=== PATIENT | male | born 1950 ===

== ENCOUNTER 2017-02-13 17:52 | Emergency (ER) | payer MEDICAID ==
[2017-02-13 17:53] VITALS: BMI 24.3
[2017-02-13 18:04] VITALS: BP 110/77; PULSE 86; RESP 16; TEMP 98.2; O2SAT 99
[2017-02-13] MEDS ORDERED: Oxycodone/Acetaminophen 5/325 mg Tab PO STA (18:19)
--- NOTE | 2017-02-13 18:21 | ED PDOC ---
Lower Extremity Pain/Injury Time Seen by Provider: 02/13/17 18:08 Chief Complaint (Nursing): Lower Extremity Problem/Injury Chief Complaint (Provider): Right foot pain History Per: Patient History/Exam Limitations: no limitations Onset/Duration Of Symptoms: Days (x2) Current Symptoms Are (Timing): Still Present Additional Complaint(s): Brigido Dempsey is a 66 year old male with previous medical history of left lower extremity amputation and hyperlipidemia, who presents to the emergency department with a complaint of right foot pain associated with redness ongoing for 2 days. Denies any fever, chills or trauma. Reported taking Motrin at 2pm today with no alleviation of symptoms. PMD: Laci Price MD Past Medical History Reviewed: Historical Data, Nursing Documentation, Vital Signs Vital Signs: Last Vital Signs Temp 98.2 F 02/13/17 18:02 Pulse 86 02/13/17 18:02 Resp 16 02/13/17 18:02 BP 110/77 02/13/17 18:02 Pulse Ox 99 02/13/17 18:02 - Medical History PMH: CVA, HTN, Hypercholesterolemia, Hyperlipidemia Denies: Chronic Kidney Disease - Surgical History Other surgeries: left lower extremity amputation - Family History Family History: States: Unknown Family Hx, Hypertension - Social History Current smoker - smoking cessation education provided: Yes Alcohol: None Drugs: Denies - Immunization History Hx Tetanus Toxoid Vaccination: No Hx Influenza Vaccination: No Hx Pneumococcal Vaccination: No - Home Medications Home Medications: Ambulatory Orders Medication Instructions Recorded Aspirin [Aspirin Chewable] 81 mg PO DAILY #0 chew 03/02/16 Cyanocobalamin/Folic Acid [Vitamin 1 each PO DAILY #0 tablet 03/02/16 K73-[id number] Acid Tablet] Naproxen [Naprosyn] 500 mg PO Q12 #14 tab 02/13/17 - Allergies Allergies/Adverse Reactions: Allergies Allergy/AdvReac Type Severity Reaction Status Date / Time pantoprazole sodium Allergy ITCHING Verified 02/13/17 18:01 [From Protonix] Review of Systems ROS Statement: Except As Marked, All Systems Reviewed And Found Negative Constitutional: Negative for: Fever, Chills, Other (trauma) Musculoskeletal: Positive for: Foot Pain (right foot associated with redness) Physical Exam - Reviewed Nursing Documentation Reviewed: Yes Vital Signs Reviewed: Yes - Physical Exam Appears: Positive for: Well, Non-toxic, No Acute Distress Head Exam: Positive for: ATRAUMATIC, NORMAL INSPECTION, NORMOCEPHALIC Cardiovascular/Chest: Positive for: Regular Rate, Rhythm Respiratory: Positive for: CNT, Normal Breath Sounds Extremity: Positive for: Normal ROM (with left lower extremity amputation noted) , Pedal Edema (to right foot with mild erythema on heel). Negative for: Other ( lesions or cubitus) DTR - Ankle (R): 2+ Neurologic/Psych: Positive for: Alert, mold filler and drainer II-XII, Oriented - Laboratory Results Result Diagrams: 02/13/17 18:40 02/13/17 18:40 - ECG O2 Sat by Pulse Oximetry: 99 (RA) Pulse Ox Interpretation: Normal Medical Decision Making Medical Decision Making: Initial Impression: Right foot pain Initial Plan: * Xray foot (right) * Xray ankle (right) * Labs * PTT * Patient * Percocet 5/325mg PO * Podiatry consult * Re-evaluation Scribe Attestation: Documented by Pat Brizuela, acting as a scribe for Cat Bryant MD. Provider Scribe Attestation: All medical record entries made by the Scribe were at my direction and personally dictated by me. I have reviewed the chart and agree that the record accurately reflects my personal performance of the history, physical exam, medical decision making, and the department course for this patient. I have also personally directed, reviewed, and agree with the discharge instructions and disposition. Disposition - Clinical Impression Clinical Impression: Plantar fasciitis, Achilles tendonitis - Patient ED Disposition Is Patient to be Admitted: Transfer of Care - Disposition Referrals: Podiatry Clinic [Outside] Farzad Linares DPM [Staff Provider] - Disposition: Transfer of Care Disposition Time: 19:00 Condition: STABLE Prescriptions: Naproxen [Naprosyn] 500 mg PO Q12 #14 tab Instructions: Plantar Fasciitis (ED), Achilles Tendinitis (ED) Patient Signed Over To: Lonnie Bob
[2017-02-13] MEDS ORDERED: Oxycodone/Acetaminophen 5/325 mg Tab ONE (18:46)
--- NOTE | 2017-02-13 18:50 | CP.PCM.CON ---
History of Present Illness - History of Present Illness History of Present Illness: This is a 66 yo male patient w/ pmhx of HLD and left lower extremity amputation 2/2 [place], presents to ED today with complaint of right foot pain x 2 days in duration. Rates the pain as a 10/10 in intensity. Denies any recent trauma or injury to the foot. Denies calf pain. Reports taking Motrin earlier this afternoon with no relief of symptoms. Denies f/n/v/c/sob/cp at this time. ALL: protonix Soc Hx: lives in [place], heavy smoker (7-10 cigarettes/day x many years), denies etoh, denies illicit drugs Review of Systems - Review of Systems Review of Systems: as per HPI Past Patient History - Infectious Disease Hx of Infectious Diseases: None - Past Medical History & Family History Past Medical History?: Yes - Past Social History Alcohol: None Drugs: Denies - CARDIAC Hx Hypercholesterolemia: Yes Hx Hypertension: Yes - PULMONARY Hx Respiratory Disorders: No - NEUROLOGICAL Hx Neurological Disorder: Yes - HEENT Other/Comment: wear eyeglasses at all times - RENAL Hx Chronic Kidney Disease: No - ENDOCRINE/METABOLIC Hx Endocrine Disorders: No - HEMATOLOGICAL/ONCOLOGICAL Hx Blood Disorders: No - INTEGUMENTARY Hx Dermatological Problems: No - MUSCULOSKELETAL/RHEUMATOLOGICAL Hx Musculoskeletal Disorders: Yes (left AKA) - GASTROINTESTINAL Hx Gastrointestinal Disorders: No - GENITOURINARY/GYNECOLOGICAL Hx Genitourinary Disorders: No - PSYCHIATRIC Hx Psychophysiologic Disorder: No Hx Substance Use: No - SURGICAL HISTORY Hx Surgeries: Yes Other/Comment: Left AKA 1973, Rt. inguinal hernia repair - ANESTHESIA Hx Anesthesia: Yes Hx Anesthesia Reactions: No Hx Malignant Hyperthermia: No Meds Allergies/Adverse Reactions: Allergies Allergy/AdvReac Type Severity Reaction Status Date / Time pantoprazole sodium Allergy ITCHING Verified 02/13/17 18:01 [From Protonix] Physical Exam - Constitutional Appears: Non-toxic, No Acute Distress - Extremities Exam Extremities exam: Negative for: calf tenderness Additional comments: Right lower ext exam: VASC- DP pulse is strongly palpable, PT pulse faintly palpable, TG runs warm to cool, cap refill < 3 sec to all digits, moderate non-pitting edema noted to plantar heel, varicosities present to bilateral malleoli DERM- no open lesions, no erythema, no ascending cellulitis NEURO- pedal sensation is grossly intact ORTHO- tenderness noted to plantar medial heel, tenderness also on palpation of achilles tendon insertion, no irregularities on palpation of achilles tendon course, pt unable to wiggle toes and unable to assess AJ ROM at this time due to pain - Neurological Exam Neurological exam: Alert, CN II-XII Intact, Oriented x3 - Psychiatric Exam Psychiatric exam: Normal Affect, Normal Mood Results - Vital Signs Recent Vital Signs: Last Vital Signs Temp 98.2 F 02/13/17 18:02 Pulse 86 02/13/17 18:02 Resp 16 02/13/17 18:02 BP 110/77 02/13/17 18:02 Pulse Ox 99 02/13/17 18:37 - Labs Result Diagrams: 02/13/17 18:40 02/13/17 18:40 Assessment & Plan - Assessment and Plan (Free Text) Assessment: 66 yo male patient with right foot pain Plan: Pt S&E at bedside in ED Plan discussed with attending Dr. Linares in detail Chart labs and vitals reviewed: afebrile, WBC 4.3 STAT dose Percocet po given per ED Right foot/ankle x-ray reviewed: plantar calcaneal heel spur noted with soft tissue edema, no fx's or dislocations noted RICE therapy recommended Recommend po pain meds Stable per podiatry F/u as outpatient in podiatry clinic with Dr. Linares
[2017-02-13 19:13] LABS: EOS # 0.2 K/uL (0.0-0.7); HEMOGLOBIN 13.3 g/dL (12.0-18.0); LYMPH # 1.6 K/uL (1.0-4.3); LYMPH % 38.1 % (20.0-40.0); MEAN CELL VOLUME 89.6 fl (80.0-94.0); MEAN CORPUSCULAR HEMOGLOBIN 29.8 pg (27.0-31.0); MEAN CORPUSCULAR HGB CONC 33.2 g/dL (33.0-37.0); MEAN PLATELET VOLUME 9.1 fl (7.2-11.7); MONO # 0.4 K/uL (0.0-0.8); NEUT # 2.1 K/uL (1.8-7.0); NEUT % 47.9 % (50.0-75.0); NRBC % 0.3 % (0.0-0.0); RBC 4.48 Mil/uL (4.40-5.90); RED CELL DISTRIBUTION WIDTH 12.8 % (11.5-14.5); WHITE BLOOD COUNT 4.3 K/uL (4.8-10.8)
[2017-02-13 19:22] LABS: ALB/GLOB RATIO 1.2 (1.0-2.1); ALBUMIN 4.2 g/dL (3.5-5.0); ALT/SGPT 40 U/L (21-72); AST/SGOT 28 U/L (17-59); BLOOD UREA NITROGEN 21 mg/dl (9-20); CALCIUM 8.9 mg/dL (8.4-10.2); GFR AFRICAN-AMERICAN > 60; GFR NON-AFRICAN AMERICAN 55
--- NOTE | 2017-02-13 19:24 | ED PDOC ---
- Laboratory Results Result Diagrams: 02/13/17 18:40 02/13/17 18:40 - ECG O2 Sat by Pulse Oximetry: 99 (RA) Pulse Ox Interpretation: Normal Medical Decision Making Medical Decision Making: Time: 19:00 --Patient was signed out to provider by Dr. Cat Bryant. Pending podiatry consult, labs results, and re-evaluation Time: 19:37 --Evaluated by podiatry resident, Carmenza, who stated that patient is stable for discharge --Labs: negative for clinical abnormality --Xray: negative for acute fracture or disease Upon provider reevaluation, patient is medically stable and requires no further treatment in the ED at this time. Patient will be discharged home with Rx for Naprosyn. Counseling was provided and all questions were answered regarding diagnosis and need for follow up with customs import specialist in 2-3 days. There is agreement to discharge plan. Return if symptoms persist or worsen. Clinical Impression: Plantar fasciitis; Achilles tendinitis Scribe Attestation: Documented by Pat Brizuela, acting as a scribe for Lonnie Bob MD. Provider Scribe Attestation: All medical record entries made by the Scribe were at my direction and personally dictated by me. I have reviewed the chart and agree that the record accurately reflects my personal performance of the history, physical exam, medical decision making, and the department course for this patient. I have also personally directed, reviewed, and agree with the discharge instructions and disposition. Disposition Doctor Will See Patient In The: Office Counseled Patient/Family Regarding: Studies Performed, Diagnosis, Need For Followup, Rx Given - Clinical Impression Clinical Impression: Plantar fasciitis, Achilles tendonitis - POA Present On Arrival: None - Disposition Referrals: Podiatry Clinic [Outside] Farzad Linares DPM [Staff Provider] - Disposition: Routine/Home Disposition Time: 19:35 Condition: STABLE Prescriptions: Naproxen [Naprosyn] 500 mg PO Q12 #14 tab Instructions: Plantar Fasciitis (ED), Achilles Tendinitis (ED)
[2017-02-13 20:46] LABS: PROTHROMBIN TIME 11.1 Seconds (9.8-13.1)
--- NOTE | 2017-02-13 21:06 | RAD ---
PROCEDURE: Right Foot Radiographs. HISTORY: Pain COMPARISON: None available. FINDINGS: BONES: Limited visualization of the distal digits, in particular the 3rd through 5th due to positioning. No acute displaced fracture. JOINTS: No dislocation. SOFT TISSUES: Mild soft tissue swelling. No evidence of radiopaque foreign body. OTHER FINDINGS: None. IMPRESSION: Limited study. Mild soft tissue swelling. No acute displaced fracture or dislocation identified. If symptoms persist, or if there is continued clinical concern, x-ray follow-up in 7-10 days should be considered.
--- NOTE | 2017-02-13 21:10 | RAD ---
PROCEDURE: Right Ankle Radiographs. HISTORY: Pain COMPARISON: None available FINDINGS: BONES: No acute displaced fracture. Small calcaneal enthesophyte. JOINTS: No dislocation. SOFT TISSUES: Vascular calcifications. No evidence of radiopaque foreign body. OTHER FINDINGS: None. IMPRESSION: No acute displaced fracture, dislocation, or significant joint effusion identified. If symptoms persist or if there is clinical concern, x-ray follow-up in 7-10 days should be considered.
== END 2017-02-13 20:56 | disposition home or self-care (01) ==
LOC: H.ER 17:52
DX: M72.2 Plantar fascial fibromatosis (principal); E78.5 Hyperlipidemia, unspecified; I10 Essential (primary) hypertension; Z86.73 Personal history of transient ischemic attack (TIA), and cerebral infarction without residual deficits

== ENCOUNTER 2017-08-23 10:46 | Emergency (ER) | payer MEDICAID ==
[2017-08-23 10:47] VITALS: BMI 24.3
[2017-08-23 11:28] VITALS: O2SAT 96
[2017-08-23 13:56] LABS: EOS # 0.2 K/uL (0.0-0.7); EOS % 3.5 % (0.0-4.0); HEMOGLOBIN 13.5 g/dL (12.0-18.0); LYMPH # 2.1 K/uL (1.0-4.3); LYMPH % 46.1 % (20.0-40.0); MEAN CORPUSCULAR HEMOGLOBIN 29.5 pg (27.0-31.0); MEAN CORPUSCULAR HGB CONC 33.6 g/dL (33.0-37.0); MEAN PLATELET VOLUME 8.6 fl (7.2-11.7); MONO # 0.4 K/uL (0.0-0.8); MONO % 9.4 % (0.0-10.0); NEUT # 1.8 K/uL (1.8-7.0); NRBC % 0.2 % (0.0-0.0); RBC 4.56 Mil/uL (4.40-5.90); RED CELL DISTRIBUTION WIDTH 12.6 % (11.5-14.5); WHITE BLOOD COUNT 4.5 K/uL (4.8-10.8)
--- NOTE | 2017-08-23 14:04 | CT ---
PROCEDURE: CT HEAD WITHOUT CONTRAST. HISTORY: Dizziness COMPARISON: Unenhanced head CT 03/01/2016 TECHNIQUE: Axial computed tomography images were obtained through the head/brain without intravenous contrast. Radiation dose: Total exam DLP = 827.27 mGy-cm. This CT exam was performed using one or more of the following dose reduction techniques: Automated exposure control, adjustment of the mA and/or kV according to patient size, and/or use of iterative reconstruction technique. FINDINGS: HEMORRHAGE: No intracranial hemorrhage. BRAIN: There is reiteration a very mild diffuse cerebral atrophy and minimal chronic microangiopathy. No mass effect is identified. There is no cortical edema. The corticomedullary differentiation is stable in the posterior fossa contents appear unremarkable diffusely. No suspicious extra-axial collection and midline brain anatomy remains normal appearing. VENTRICLES: Unremarkable. No hydrocephalus. CALVARIUM: Unremarkable. PARANASAL SINUSES: Multifocal ethmoid sinus mucosal inflammatory changes are identified bilaterally. MASTOID AIR CELLS: Unremarkable as visualized. No inflammatory changes. OTHER FINDINGS: None. IMPRESSION: Stable minimal age related neuro degenerative changes are identified. No intracranial acute findings noted. CT or MRI are available for follow-up if clinically warranted. Incidental bilateral ethmoid sinus mucosal inflammatory changes noted.
[2017-08-23 14:11] LABS: ALB/GLOB RATIO 0.9 (1.0-2.1); ALBUMIN 3.7 g/dL (3.5-5.0); ALT/SGPT 24 U/L (21-72); AST/SGOT 21 U/L (17-59); BLOOD UREA NITROGEN 18 mg/dl (9-20); CALCIUM 8.7 mg/dL (8.4-10.2); GFR AFRICAN-AMERICAN > 60; GFR NON-AFRICAN AMERICAN > 60
[2017-08-23 14:16] LABS: PROTHROMBIN TIME 10.9 Seconds (9.8-13.1)
[2017-08-23] MEDS ORDERED: HYDROmorphone 0.5 mg/0.5 ml ISec ONE (14:21)
--- NOTE | 2017-08-23 14:23 | ED PDOC ---
HPI: Back Time Seen by Provider: 08/23/17 12:36 Chief Complaint (Nursing): Dizziness/Lightheaded Chief Complaint (Provider): Back pain History Per: Patient History/Exam Limitations: no limitations Onset/Duration Of Symptoms: Days Additional Complaint(s): Patient is a 67 y/o male with no significant past medical history presenting to the emergency department for right sided back pain following a fall last night. Reports that he was walking when he suddenly felt lightheaded and fell. Denies loss of consciousness or head trauma. He was able to ambulate afterwards to bed. Today he developed right sided back pain. Notes taking Motrin which provided mild relief. Also denies headache, paresthesia, weakness, or other complaints. PCP: none provided. Past Medical History Reviewed: Historical Data, Nursing Documentation, Vital Signs Vital Signs: Last Vital Signs Temp 98.1 F 08/23/17 11:20 Pulse 61 08/23/17 11:20 Resp 18 08/23/17 11:20 BP 139/77 08/23/17 11:20 Pulse Ox 96 08/23/17 11:20 - Medical History PMH: CVA, HTN, Hypercholesterolemia, Hyperlipidemia Denies: Chronic Kidney Disease - Family History Family History: States: Unknown Family Hx, Hypertension - Social History Current smoker - smoking cessation education provided: Yes Ex-Smoker (has not smoked in the last 12 months): No Alcohol: None Drugs: Denies - Immunization History Hx Tetanus Toxoid Vaccination: No Hx Influenza Vaccination: No Hx Pneumococcal Vaccination: No - Home Medications Home Medications: Ambulatory Orders Medication Instructions Recorded Aspirin [Aspirin Chewable] 81 mg PO DAILY #0 chew 03/02/16 Cyanocobalamin/Folic Acid [Vitamin 1 each PO DAILY #0 tablet 03/02/16 R75-Qoisl Acid Tablet] Naproxen [Naprosyn] 500 mg PO Q12 #14 tab 02/13/17 Meclizine [Meclizine*] 25 mg PO Q6 PRN #20 tab 08/23/17 Naproxen [Naprosyn] 500 mg PO BID PRN #15 tablet 08/23/17 - Allergies Allergies/Adverse Reactions: Allergies Allergy/AdvReac Type Severity Reaction Status Date / Time pantoprazole sodium Allergy ITCHING Verified 02/13/17 18:01 [From Protonix] Review of Systems ROS Statement: Except As Marked, All Systems Reviewed And Found Negative Cardiovascular: Positive for: Light Headedness Musculoskeletal: Positive for: Back Pain (right sided). Negative for: Other ( traumatic head pain) Neurological: Negative for: Weakness (or paresthesia ), Headache, Other (loss of consciousness) Physical Exam - Reviewed Nursing Documentation Reviewed: Yes Vital Signs Reviewed: Yes - Physical Exam Appears: Positive for: Well, Non-toxic, No Acute Distress Head Exam: Positive for: ATRAUMATIC, NORMAL INSPECTION, NORMOCEPHALIC Skin: Positive for: Normal Color, Warm, Dry Eye Exam: Positive for: Normal appearance Neck: Positive for: Normal Cardiovascular/Chest: Positive for: Bradycardia. Negative for: Murmur, Irregularly Irregular Respiratory: Positive for: Normal Breath Sounds. Negative for: Accessory Muscle Use, Respiratory Distress Gastrointestinal/Abdominal: Positive for: Normal Exam, Soft. Negative for: Tenderness, Mass, Guarding Back: Positive for: R CVA Tenderness. Negative for: L CVA Tenderness, Vertebral Tenderness, Other (ecchymosis or crepitus) Extremity: Positive for: Normal ROM, Other (Left AKA secondary to trauma). Negative for: Pedal Edema, Deformity Neurologic/Psych: Positive for: Alert, Oriented (x3) - Laboratory Results Result Diagrams: 08/23/17 13:46 08/23/17 13:46 - ECG Interpretation Of ECG: Sinus santana @ 51, nonspecific ST abnormality. O2 Sat by Pulse Oximetry: 96 (RA) Pulse Ox Interpretation: Normal Medical Decision Making Medical Decision Making: Time: 13:27 Initial plan: Abdominal/pelvic CT scan EKG ED Urine Dipstick PTT Prothrombin Time CXR Dilaudid 0.5 mg IVP Urinalysis Reevaluation 14:[address] reviewed. Findings noted as follows: FINDINGS: HEMORRHAGE: No intracranial hemorrhage. BRAIN: There is reiteration a very mild diffuse cerebral atrophy and minimal chronic microangiopathy. No mass effect is identified. There is no cortical edema. The corticomedullary differentiation is stable in the posterior fossa contents appear unremarkable diffusely. No suspicious extra-axial collection and midline brain anatomy remains normal appearing. VENTRICLES: Unremarkable. No hydrocephalus. CALVARIUM: Unremarkable. PARANASAL SINUSES: Multifocal ethmoid sinus mucosal inflammatory changes are identified bilaterally. MASTOID AIR CELLS: Unremarkable as visualized. No inflammatory changes. OTHER FINDINGS: None. IMPRESSION: Stable minimal age related neuro degenerative changes are identified. No intracranial acute findings noted. CT or MRI are available for follow-up if clinically warranted. Incidental bilateral ethmoid sinus mucosal inflammatory changes noted. 15:21 Chest x-ray reviewed. Findings noted as follows: FINDINGS: LUNGS: No active pulmonary disease. PLEURA: No significant pleural effusion identified, no pneumothorax apparent. CARDIOVASCULAR: No radiographic findings to suggest acute or significant cardiovascular disease. OSSEOUS STRUCTURES: No significant abnormalities. VISUALIZED UPPER ABDOMEN: Normal. OTHER FINDINGS: None. IMPRESSION: No active disease. No significant interval change compared to the prior examination(s). 15:49 A/P CT reviewed. Findings noted as follows: FINDINGS: LOWER THORAX: Mild cardiomegaly is identified as well as a small hiatal hernia. No pleural or pericardial effusion identified. LIVER: Hepatic steatosis is appreciated without prominent hepatic mass or intrahepatic biliary duct dilatation. There is a tiny lucency seen the dome liver too small to characterize. GALLBLADDER AND BILE DUCTS: Unremarkable. PANCREAS: Unremarkable. No gross lesion or ductal dilatation. SPLEEN: Unremarkable. ADRENALS: Unremarkable. No mass. KIDNEYS AND URETERS: Multiple bilateral renal cysts are identified. The dominant left renal cyst measures 2.5 x 2.4 cm in the mid pole and is exophytic laterally and posteriorly with a tiny mural nodule calcifications seen posteriorly. A mid to upper pole left renal cyst measures 42 Hounsfield units and 1.9 x 2.0 cm without obvious septation or nodularity. Given increased density, this likely reflects the proteinaceous or hemorrhagic cyst though solid nodules not completely excluded. The dominant right renal cyst measures 13 Hounsfield units and measures 2.5 x 1.6 cm. There are several tiny lucencies under 1 cm size in both kidneys too small to characterize. No delayed nephrogram, perinephric reaction or obstructive uropathy bilaterally. No definitive radiodense urolithiasis appreciated bilaterally. VASCULATURE: Unremarkable. No aortic aneurysm. BOWEL: Stomach is decompressed. Moderate fecal loading is seen throughout the colon. Lack of oral contrast limits evaluation the gastrointestinal tract however no definitive acute findings are seen related at this time. A few cecal diverticular are identified which are non inflammatory. APPENDIX: Nonvisualization of the appendix. Consider possible prior appendectomy. No CT pattern to suggest appendicitis nevertheless. PERITONEUM: Unremarkable. No free fluid. No free air. LYMPH NODES: Unremarkable. No enlarged lymph nodes. BLADDER: Unremarkable. REPRODUCTIVE: Unremarkable. BONES: Benign hemangioma L1 vertebral body incidentally noted. OTHER FINDINGS: None. IMPRESSION: 1. Multiple bilateral renal lucencies are appreciated which are too small to characterize for the most part. Dominant cysts are identified as discussed above bilaterally. Complex cysts are seen at the left kidney which require MR or CT evaluation with without contrast on elective basis. No obstructive uropathy bilaterally. 2. Limited cecal diverticula without definite acute inflammatory reaction. 3. Mildly distended but otherwise unremarkable appearing gallbladder. 4. No CT evidence of appendicitis at this time. The appendix is not identified. Upon review of old records, pt baseline HR low/low normal. Scribe Attestation: Documented by Eugenia Torre, acting as a scribe for Cat Bryant MD. Provider Scribe Attestation: All medical record entries made by the Scribe were at my direction and personally dictated by me. I have reviewed the chart and agree that the record accurately reflects my personal performance of the history, physical exam, medical decision making, and the department course for this patient. I have also personally directed, reviewed, and agree with the discharge instructions and disposition. Disposition - Clinical Impression Clinical Impression: Flank pain, Musculoskeletal pain, Lightheadedness - Disposition Referrals: [facility] [Outside] Disposition: Routine/Home Disposition Time: 16:34 Condition: STABLE Prescriptions: Meclizine [Meclizine*] 25 mg PO Q6 PRN #20 tab PRN Reason: Dizziness Naproxen [Naprosyn] 500 mg PO BID PRN #15 tablet PRN Reason: Pain, Moderate (4-7) Instructions: Musculoskeletal Pain (ED), Lightheadedness (ED), Flank Pain (ED) Forms: [employer] (Danish)
[2017-08-23] MEDS ORDERED: HYDROmorphone 0.5 mg/0.5 ml ISec IVP STA (14:24)
[2017-08-23] MEDS ORDERED: Sodium Chloride 0.9% 50 ML IV ONE (15:13)
[2017-08-23] MEDS ORDERED: Iohexol 300 100 ML IJ ONE (15:13)
--- NOTE | 2017-08-23 15:23 | RAD ---
HISTORY: Dizziness COMPARISON: 03/01/2016 FINDINGS: LUNGS: No active pulmonary disease. PLEURA: No significant pleural effusion identified, no pneumothorax apparent. CARDIOVASCULAR: No radiographic findings to suggest acute or significant cardiovascular disease. OSSEOUS STRUCTURES: No significant abnormalities. VISUALIZED UPPER ABDOMEN: Normal. OTHER FINDINGS: None. IMPRESSION: No active disease. No significant interval change compared to the prior examination(s).
[2017-08-23 15:56] LABS: SQUAMOUS EPITHIAL 1 /hpf (0-5); URINE BILIRUBIN NEGATIVE (NEGATIVE); URINE BLOOD SMALL (NEGATIVE); URINE CLARITY CLEAR (Clear); URINE COLOR YELLOW (YELLOW); URINE GLUCOSE (UA) NEG (Normal); URINE LEUKOCYTE ESTERASE NEG Leu/uL (Negative); URINE NITRATE NEGATIVE (NEGATIVE); URINE PROTEIN 30 mg/dL (NEGATIVE); URINE UROBILINOGEN 0.2-1.0 mg/dL (0.2-1.0)
--- NOTE | 2017-08-23 16:24 | CT ---
PROCEDURE: CT Abdomen and Pelvis with contrast HISTORY: R flank pain, s/p fall COMPARISON: None. TECHNIQUE: Following the intravenous administration of iodinated contrast material, a CT examination of the abdomen and pelvis performed from the domes of the diaphragms to the symphysis pubis with reformatted datasets provided not only axial but also sagittal and coronal planes. Oral contrast was not administered as per referring physician request. Contrast dose: Omnipaque 300, 95 cc Radiation dose: Total exam DLP = 706.22 mGy-cm. This CT exam was performed using one or more of the following dose reduction techniques: Automated exposure control, adjustment of the mA and/or kV according to patient size, and/or use of iterative reconstruction technique. FINDINGS: LOWER THORAX: Mild cardiomegaly is identified as well as a small hiatal hernia. No pleural or pericardial effusion identified. LIVER: Hepatic steatosis is appreciated without prominent hepatic mass or intrahepatic biliary duct dilatation. There is a tiny lucency seen the dome liver too small to characterize. GALLBLADDER AND BILE DUCTS: Unremarkable. PANCREAS: Unremarkable. No gross lesion or ductal dilatation. SPLEEN: Unremarkable. ADRENALS: Unremarkable. No mass. KIDNEYS AND URETERS: Multiple bilateral renal cysts are identified. The dominant left renal cyst measures 2.5 x 2.4 cm in the mid pole and is exophytic laterally and posteriorly with a tiny mural nodule calcifications seen posteriorly. A mid to upper pole left renal cyst measures 42 Hounsfield units and 1.9 x 2.0 cm without obvious septation or nodularity. Given increased density, this likely reflects the proteinaceous or hemorrhagic cyst though solid nodules not completely excluded. The dominant right renal cyst measures 13 Hounsfield units and measures 2.5 x 1.6 cm. There are several tiny lucencies under 1 cm size in both kidneys too small to characterize. No delayed nephrogram, perinephric reaction or obstructive uropathy bilaterally. No definitive radiodense urolithiasis appreciated bilaterally. VASCULATURE: Unremarkable. No aortic aneurysm. BOWEL: Stomach is decompressed. Moderate fecal loading is seen throughout the colon. Lack of oral contrast limits evaluation the gastrointestinal tract however no definitive acute findings are seen related at this time. A few cecal diverticular are identified which are non inflammatory. APPENDIX: Nonvisualization of the appendix. Consider possible prior appendectomy. No CT pattern to suggest appendicitis nevertheless. PERITONEUM: Unremarkable. No free fluid. No free air. LYMPH NODES: Unremarkable. No enlarged lymph nodes. BLADDER: Unremarkable. REPRODUCTIVE: Unremarkable. BONES: Benign hemangioma L1 vertebral body incidentally noted. OTHER FINDINGS: None. IMPRESSION: 1. Multiple bilateral renal lucencies are appreciated which are too small to characterize for the most part. Dominant cysts are identified as discussed above bilaterally. Complex cysts are seen at the left kidney which require MR or CT evaluation with without contrast on elective basis. No obstructive uropathy bilaterally. 2. Limited cecal diverticula without definite acute inflammatory reaction. 3. Mildly distended but otherwise unremarkable appearing gallbladder. 4. No CT evidence of appendicitis at this time. The appendix is not identified.
[2017-08-23 16:58] VITALS: BP 136/81; PULSE 72; RESP 15; TEMP 98.8
--- NOTE | 2017-08-23 18:22 | CARD ---
APPROVED REPORT EKG Measurement Heart [id number] <Conclusion> Sinus bradycardia Minimal voltage criteria for LVH, may be normal variant Nonspecific ST abnormality Abnormal ECG
== END 2017-08-23 17:00 | disposition home or self-care (01) ==
LOC: H.ER 10:46
DX: R10.9 Unspecified abdominal pain (principal); M79.1 Myalgia; R42 Dizziness and giddiness
CPT/HCPCS: 70450; 71045; 74177; 80053; 81003; 82948; 85025; 85610; 85730; 93005; 96374; 99285; J1170; Q9967